=== PATIENT | female | born 2000 | race African-American/Black ===

== ENCOUNTER 2019-04-24 20:37 | Emergency (ER) | payer OTHER ==
--- NOTE | 2019-04-24 20:48 | ER Document Report ---
ED Medical Screen (RME) - General Chief Complaint: Vag Bleeding, +preg <12wks Stated Complaint: VAGINAL BLEEDING/7 WEEKS Time Seen by Provider: 04/24/19 20:41 Mode of Arrival: Ambulatory Information source: Patient Notes: This 18-year-old female approximately 8 weeks G3, P0 presents emergency department with complaints of abdominal pain and vaginal bleeding for the past 3 days. No complaints of fever vomiting diarrhea. 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 I have greeted and performed a rapid initial assessment of this patient. A comprehensive ED assessment and evaluation of the patient, analysis of test results and completion of the medical decision making process will be conducted by additional ED providers. - Related Data Allergies/Adverse Reactions: No Known Allergies Allergy (Verified 04/10/19 03:52) Past Medical History Past Surgical History: Reports: Hx Gynecologic Surgery - DNC - Immunizations Immunizations up to date: Yes
[2019-04-24 21:16] LABS: ABSOLUTE EOSINOPHILS # (AUTO) 0.1 10^3/uL (0.0-0.6); ABSOLUTE LYMPHOCYTES (AUTO) 2.6 10^3/uL (0.5-4.7); ABSOLUTE MONOCYTES (AUTO) 0.9 10^3/uL (0.1-1.4); ABSOLUTE NEUT (AUTO) 10.4 10^3/uL (1.7-8.2); BASOPHILS % (AUTO) 0.3 % (0-2); EOSINOPHILS % (AUTO) 0.8 % (0-6); HEMATOCRIT 41.8 % (36.0-47.0); HEMOGLOBIN 14.1 g/dL (12.0-15.5); LYMPHOCYTES % (AUTO) 18.7 % (13-45); MEAN CORPUSCULAR HEMOGLOBIN 25.5 pg (27.0-33.4); MEAN CORPUSCULAR HGB CONC 33.7 g/dL (32.0-36.0); MEAN CORPUSCULAR VOLUME 76 fl (80-97); MONOCYTES % (AUTO) 6.3 % (3-13); PLATELET COUNT 277 10^3/uL (150-450); RED BLOOD COUNT 5.53 10^6/uL (3.72-5.28); RED CELL DISTRIBUTION WIDTH 13.9 % (11.5-14.0); SEGMENTED NEUTROPHILS % (AUTO) 73.9 % (42-78); TOTAL CELLS COUNTED % (AUTO) 100 %; WHITE BLOOD COUNT 14.1 10^3/uL (4.0-10.5)
[2019-04-24 21:34] LABS: ALBUMIN 4.6 g/dL (3.5-5.0); ALKALINE PHOSPHATASE 76 U/L (38-126); ANION GAP 12 (5-19); ASPARTATE AMINO TRANSFERASE 25 U/L (14-36); BILIRUBIN,DIRECT 0.2 mg/dL (0.0-0.4); BILIRUBIN,TOTAL 0.3 mg/dL (0.2-1.3); BLOOD UREA NITROGEN 12 mg/dL (7-20); CALCIUM 9.9 mg/dL (8.4-10.2); CARBON DIOXIDE 25 mmol/L (22-30); CHLORIDE 100 mmol/L (98-107); GLUCOSE 93 mg/dL (75-110); POTASSIUM 3.9 mmol/L (3.6-5.0); TOTAL PROTEIN 8.2 g/dL (6.3-8.2)
[2019-04-24 21:53] LABS: APPEARANCE,URINE CLEAR; BILIRUBIN,URINE NEGATIVE (NEGATIVE); COLOR,URINE YELLOW; GLUCOSE, URINE NEGATIVE (NEGATIVE); KETONES,URINE NEGATIVE (NEGATIVE); LEUKOCYTE ESTERASE,URINE NEGATIVE (NEGATIVE); NITRITE,URINE NEGATIVE (NEGATIVE); PROTEIN,URINE NEGATIVE (NEGATIVE); URINE SPECIFIC GRAVITY 1.012; UROBILINOGEN,URINE NEGATIVE mg/dL (<2.0)
--- NOTE | 2019-04-24 21:58 | ER Document Report ---
ED GI/ - General Chief Complaint: Vaginal Bleeding Stated Complaint: VAGINAL BLEEDING/7 WEEKS Time Seen by Provider: 04/24/19 20:41 Primary Care Provider: ASHISH GALLEGOS PA-C [Primary Care Provider] - Follow up as needed Mode of Arrival: Ambulatory Notes: Patient is a 18-year-old female, G3, P0 at 8 weeks gestation by first trimester ultrasound, that comes emergency department for chief complaint of lower abdominal cramps and cramps in her lower back along with vaginal spotting for the past 3 days. She denies current abdominal pain. She denies vomiting, fever, abnormal bowel movements. She does report frequent nausea. She has had 2 first trimester miscarriages and one D&C. She is taking vitamins but denies other medications. - Related Data Allergies/Adverse Reactions: No Known Allergies Allergy (Verified 04/10/19 03:52) Past Medical History - General Information source: Patient - Social History Smoking Status: Never Smoker Frequency of alcohol use: None Drug Abuse: None Lives with: Family Family History: Reviewed & Not Pertinent Patient has suicidal ideation: No Patient has homicidal ideation: No Past Surgical History: Reports: Hx Gynecologic Surgery - DNC - Immunizations Immunizations up to date: Yes Review of Systems - Review of Systems Constitutional: No symptoms reported EENT: No symptoms reported Cardiovascular: No symptoms reported Respiratory: No symptoms reported Gastrointestinal: See HPI Genitourinary: See HPI Female Genitourinary: No symptoms reported Musculoskeletal: No symptoms reported Skin: No symptoms reported Hematologic/Lymphatic: No symptoms reported Neurological/Psychological: No symptoms reported Physical Exam - Vital signs Vitals: Temp Pulse Resp BP Pulse Ox 98.2 F 77 16 114/57 L 99 04/25/19 00:07 04/25/19 00:07 04/25/19 00:07 04/25/19 00:07 04/25/19 00:07 - Notes Notes: GENERAL: Alert, interacts well. No acute distress. HEAD: Normocephalic, atraumatic. EYES: Pupils equal, round, and reactive to light. Extraocular movements intact. ENT: Oral mucosa moist, tongue midline. Oropharynx unremarkable. Airway patent. LUNGS: Clear to auscultation bilaterally, no wheezes, rales, or rhonchi. No respiratory distress. HEART: Regular rate and rhythm. No murmur ABDOMEN: Soft, non-tender. Non-distended. Bowel sounds present in all 4 quadrants. GENITOURINARY: Deferred EXTREMITIES: Moves all 4 extremities spontaneously. No edema, normal radial and dorsalis pedis pulses bilaterally. No cyanosis. BACK: no cervical, thoracic, lumbar midline tenderness. No saddle anesthesia, normal distal neurovascular exam. Moves all extremities in full range of motion. NEUROLOGICAL: Alert and oriented x3. Normal speech. Cranial nerves II through XII grossly intact. PSYCH: Normal affect, normal mood. SKIN: Warm, dry, normal turgor. No rashes or lesions noted. Course - Re-evaluation Re-evalutation: Patient alert, well-appearing, soft abdomen. Unremarkable vital signs. Urinalysis unremarkable, hCG appropriate, RhoGam not indicated. CBC shows mild leukocytosis, no anemia, nonspecific given patient's lack of symptoms and benign evaluation. Ultrasound indicates intrauterine which is living, no acute findings. There are ovarian cysts but there are no torsions and patient was already aware of these. Discussed with patient. Discussed follow-up for cysts. She is asymptomatic on reevaluation. Discussed findings, recommendations, follow-up, return precautions. Patient requesting nausea medication for morning sickness, Reglan was provided. Patient states appreciation and agreement. Stable at time of discharge. - Vital Signs Vital signs: Temp Pulse Resp BP Pulse Ox 98.2 F 77 16 114/57 L 99 04/25/19 00:07 04/25/19 00:07 04/25/19 00:07 04/25/19 00:07 04/25/19 00:07 - Laboratory Result Diagrams: 04/24/19 21:00 04/24/19 21:00 Laboratory results interpreted by me: 04/24/19 04/24/19 21:00 21:00 WBC 14.1 H RBC 5.53 H MCV 76 L MCH 25.5 L Absolute Neuts (auto) 10.4 H Beta HCG, Quant 622184.00 H Discharge - Discharge Clinical Impression: Vaginal bleeding affecting early , Nausea Abdominal pain Qualifiers: Abdominal location: generalized Qualified Code(s): R10.84 - Generalized abdominal pain Condition: Stable Disposition: HOME, SELF-CARE Additional Instructions: Your ultrasound indicates a normal-appearing in the uterus at 7 weeks and 2 days with a good heartbeat. There are also cysts on your right ovary s till, this needs to be followed by INSTRUCTIONAL TECHNOLOGIST. Because of the bleeding and cramping I recommend pelvic rest until cleared by INSTRUCTIONAL TECHNOLOGIST, avoid sexual intercourse, intense exercise, etc. Take Tylenol for pain if needed, take Reglan if needed for nausea, you can take Benadryl with this also if needed. Return for any concerning symptoms including severe pain, fever, uncontrolled vomiting, heavy bleeding with dizziness or passing out, or any other concerning or worsening symptoms. Prescriptions: Metoclopramide HCl [Reglan] 5 mg PO ASDIR PRN #30 tablet PRN Reason: Referrals: ASHISH GALLEGOS PA-C [Primary Care Provider] - Follow up as needed
--- NOTE | 2019-04-24 23:44 | RADIOLOGY REPORT (SQ) ---
EXAM DESCRIPTION: US TRANSVAGINAL COMPLETED DATE/TME: 04/24/2019 21:58 CLINICAL HISTORY: 18 years, Female, vaginal bleeding, +HCG, abd pain COMPARISON: 04/10/2019 ultrasound TECHNIQUE: Emergent ultrasound LIMITATIONS: None. FINDINGS: The uterus measures 8.2 x 5.1 x 3.9 cm. There is an intrauterine gestational sac with yolk sac and pole. heart tones were obtained at 139 bpm. Current ultrasound age is 7 weeks 2 days based on crown-rump length and 10 weeks 3 days based on mean sac diameter. Average ultrasound age is therefore 8 weeks 6 days. The maternal right ovary measures 5 x 4 x 4 cm, the left 3 x 1 x 2 cm. 2 cystic areas of the right ovary are again noted, one of these measures 3.4 x 3.3 cm the other 3.1 x 2.2 cm. There are some equivocal low-level echoes within the cysts. These are grossly unchanged. No solid adnexal mass. No free fluid. Normal flow to each ovary IMPRESSION: Single, live IUP as above. Nonemergent follow-up recommended. Stable appearance to the to minimally complex right ovarian cysts. Recommend follow-up as per below. Recommendations for f/u of ovarian complex cysts (1): Endometrioma: <= 7 cm: US f/u 6-12 wks. If not surgically resected, US f/u annually. >7 cm: Consider MR w/IVC or surgical evaluation. If not surgically resected, US f/u annually. Dermoid: <= 5 cm: MR w/IV contrast. If not surgically resected, US f/u annually. >5 cm: Surgical evaluation. If not surgically resected, MR w/IVC; then US f/u annually Indeterminate cyst - multiple thin <=3 mm septations: Any size in any age: Consider surgical evaluation. Indeterminate cyst - non-hyperechoic nodule w/o blood flow: Any size in any age: Consider MR w/IVC or surgical evaluation. Indeterminate cyst - other, not classic for but suggestive of hemorrhagic cyst, endometrioma or dermoid: Pre-menopause: <= 7 cm: US f/u 6-12 weeks. If unchanged, continue f/u with US or consider MR w/IVC. If these do not confirm endometrioma or dermoid, consider surgical evaluation. >7 cm: Consider MR w/IVC or surgical evaluation. Post-menopause (>=1 year from last menstrual period): Any size: Consider surgical evaluation. Cyst worrisome for malignancy (thick, irregular >=3 mm septations or nodule with blood flow): Any size in any age: Consider surgical evaluation. (1) Recommendations based upon the 2010 SRU Consensus Conference Statement on the Management of Asymptomatic Ovarian and Other Adnexal Cysts Imaged at US: Radiology. 2009;256(3):943-54. copyright 2011 [employer]- All Rights Reserved
[2019-04-25 00:08] VITALS: BP 114/57
== END 2019-04-25 00:08 | disposition home or self-care (01) ==
LOC: ER 20:37
DX: O20.9 Hemorrhage in early pregnancy, unspecified (principal); O26.891 Other specified pregnancy related conditions, first trimester; R11.0 Nausea; R10.84 Generalized abdominal pain; R25.2 Cramp and spasm; O34.81 Maternal care for other abnormalities of pelvic organs, first trimester; N83.201 Unspecified ovarian cyst, right side; O99.111 Other diseases of the blood and blood-forming organs and certain disorders involving the immune mechanism complicating pregnancy, first trimester; D72.829 Elevated white blood cell count, unspecified; Z3A.08 8 weeks gestation of pregnancy; Z87.59 Personal history of other complications of pregnancy, childbirth and the puerperium; Z79.899 Other long term (current) drug therapy
CPT/HCPCS: 36415; 76817; 80053; 81001; 84702; 85025; 86900; 86901; 93976; 99284

== ENCOUNTER 2020-01-21 17:38 | Emergency (ER) | payer OTHER ==
[2020-01-21 17:55] VITALS: BP 127/78
--- NOTE | 2020-01-21 18:58 | ER Document Report ---
ED Medical Screen (RME) - General Chief Complaint: Pain All Over Stated Complaint: PAIN ALL OVER Time Seen by Provider: 01/21/20 18:52 Primary Care Provider: ASHISH GALLEGOS PA-C [Primary Care Provider] - Follow up as needed Mode of Arrival: Ambulatory Information source: Patient Notes: HPI; 19-year-old female comes in with concerns for thyroid disorder as well as depression. Patient states she had a baby on December 17 has followed up with her TELEPHONE DIRECTORY DISTRIBUTOR DRIVER who was diagnosed with depression. States they are giving her Zoloft which she is not taking as she is breast- feeding. She is concerned that she has either an autoimmune disorder or thyroid disorder which is causing her to have general body aches and forgetfulness. Also complaining of intermittent chest pain. Denies shortness of breath, no difficulty breathing. No recent travel. No COVID-19 exposure. Previous suicide attempt when she was in middle school. Also has a history of bipolar as well as a mood disorder. PE: Alert and oriented x3. Flat affect. Difficult to keep focused. Denies suicidal and homicidal ideation. Lungs: Clear to auscultation without rales, rhonchi, wheezes. Heart: Regular rate rhythm without murmurs, rubs, gallops. I have greeted and performed a rapid initial assessment of this patient. A comprehensive ED assessment and evaluation of the patient, analysis of test results and completion of the medical decision making process will be conducted by additional ED providers. I have specifically instructed the patient or family members with the patient to immediately return to any nursing staff should anything change in the patient's condition or with their chief complaint. TRAVEL OUTSIDE OF THE [place] IN LAST 30 DAYS: No - Related Data Allergies/Adverse Reactions: No Known Allergies Allergy (Verified 04/10/19 03:52) Past Medical History Past Surgical History: Reports: Hx Gynecologic Surgery - DNC - Immunizations Immunizations up to date: Yes Physical Exam - Vital signs Vitals: Temp Pulse Resp BP Pulse Ox 98.8 F 95 18 127/78 H 100 01/21/20 17:53 01/21/20 17:53 01/21/20 17:53 01/21/20 17:53 01/21/20 17:53 Course - Vital Signs Vital signs: Temp Pulse Resp BP Pulse Ox 98.8 F 95 18 127/78 H 100 01/21/20 17:53 01/21/20 17:53 01/21/20 17:53 01/21/20 17:53 01/21/20 17:53 Doctor's Discharge - Discharge Referrals: ASHISH GALLEGOS PA-C [Primary Care Provider] - Follow up as needed
--- NOTE | 2020-01-21 19:20 | RADIOLOGY REPORT (SQ) ---
EXAM DESCRIPTION: CHEST 2 VIEWS IMAGES COMPLETED DATE/TIME: 01/21/2020 7:10 pm REASON FOR STUDY: chest pain COMPARISON: None. TECHNIQUE: Frontal and lateral radiographic views of the chest acquired. NUMBER OF VIEWS: Two view. LIMITATIONS: None. FINDINGS: LUNGS AND PLEURA: No pneumothorax. No consolidation or pleural effusion. MEDIASTINUM AND HILAR STRUCTURES: No contour abnormalities. HEART AND VASCULAR STRUCTURES: Heart normal size. BONES: No acute findings. HARDWARE: None in the chest. OTHER: No other significant finding. IMPRESSION: NO ACUTE FINDINGS. TECHNICAL DOCUMENTATION: JOB ID: [id number] [place]-72 2010 [employer]- All Rights Reserved Reading location - IP/workstation name: [email or web address]
[2020-01-21 20:15] LABS: ABSOLUTE EOSINOPHILS # (AUTO) 0.1 10^3/uL (0.0-0.6); ABSOLUTE LYMPHOCYTES (AUTO) 2.5 10^3/uL (0.5-4.7); ABSOLUTE MONOCYTES (AUTO) 0.4 10^3/uL (0.1-1.4); ABSOLUTE NEUT (AUTO) 3.5 10^3/uL (1.7-8.2); BASOPHILS % (AUTO) 0.7 % (0-2); EOSINOPHILS % (AUTO) 1.8 % (0-6); HEMATOCRIT 44.9 % (36.0-47.0); LYMPHOCYTES % (AUTO) 37.4 % (13-45); MEAN CORPUSCULAR HEMOGLOBIN 26.1 pg (27.0-33.4); MEAN CORPUSCULAR HGB CONC 33.4 g/dL (32.0-36.0); MEAN CORPUSCULAR VOLUME 78 fl (80-97); MONOCYTES % (AUTO) 6.6 % (3-13); PLATELET COUNT 207 10^3/uL (150-450); RED BLOOD COUNT 5.75 10^6/uL (3.72-5.28); RED CELL DISTRIBUTION WIDTH 13.6 % (11.5-14.0); SEGMENTED NEUTROPHILS % (AUTO) 53.5 % (42-78); TOTAL CELLS COUNTED % (AUTO) 100 %; WHITE BLOOD COUNT 6.6 10^3/uL (4.0-10.5)
[2020-01-21 20:34] LABS: ALBUMIN 4.5 g/dL (3.5-5.0); ALKALINE PHOSPHATASE 122 U/L (38-126); ANION GAP 11 (5-19); ASPARTATE AMINO TRANSFERASE 52 U/L (14-36); BILIRUBIN,DIRECT 0.1 mg/dL (0.0-0.4); BILIRUBIN,TOTAL 0.4 mg/dL (0.2-1.3); BLOOD UREA NITROGEN 13 mg/dL (7-20); CALCIUM 9.7 mg/dL (8.4-10.2); CARBON DIOXIDE 23 mmol/L (22-30); CHLORIDE 104 mmol/L (98-107); GLUCOSE 96 mg/dL (75-110); POTASSIUM 4.4 mmol/L (3.6-5.0); TOTAL PROTEIN 7.5 g/dL (6.3-8.2)
[2020-01-21 20:36] LABS: ACETAMINOPHEN < 10 ug/mL (10-30); ALCOHOL < 10 mg/dL (NONE DETECTED); SALICYLATE < 1.0 mg/dL (2.0-20.0)
[2020-01-21 20:58] LABS: APPEARANCE,URINE CLEAR; BILIRUBIN,URINE NEGATIVE (NEGATIVE); COLOR,URINE YELLOW; GLUCOSE, URINE NEGATIVE (NEGATIVE); KETONES,URINE NEGATIVE (NEGATIVE); LEUKOCYTE ESTERASE,URINE MODERATE (NEGATIVE); NITRITE,URINE NEGATIVE (NEGATIVE); PROTEIN,URINE 30 mg/dL (NEGATIVE); URINE SPECIFIC GRAVITY 1.017
[2020-01-21 21:11] LABS: URINE AMPHETAMINES SCREEN NEGATIVE; URINE BARBITURATES SCREEN NEGATIVE; URINE BENZODIAZEPINES SCREEN NEGATIVE; URINE COCAINE SCREEN NEGATIVE; URINE MARIJUANA (THC) SCREEN NEGATIVE; URINE METHADONE SCREEN NEGATIVE; URINE PHENCYCLIDINE SCREEN NEGATIVE
--- NOTE | 2020-01-21 21:51 | EKG REPORT ---
SEVERITY:- NORMAL ECG - SINUS RHYTHM : Confirmed by: Susy Donnelly MD 21-Jan-2020 21:51:29
--- NOTE | 2020-01-21 22:26 | ER Document Report ---
ED General - General Chief Complaint: Pain All Over Stated Complaint: PAIN ALL OVER Time Seen by Provider: 01/21/20 18:52 Primary Care Provider: ASHISH GALLEGOS PA-C [PHYSICIAN OFFICE WORKFORCE PLANNER] - Follow up as needed Mode of Arrival: Ambulatory Information source: Patient Notes: 19-year-old female patient presenting to the emergency department with multiple concerns today. She reports that she has been having a lot of fatigue lately, she has felt very cold especially in her extremities and she has been having depression. She states that she had a normal vaginal delivery 4 weeks ago and that her doctor diagnosed her with depression and recommended medications. Patient reports she does not really want to take the medication because she is breast-feeding and she is concerned that the medication could interfere with this. Patient reports she has a lot of anxiety lately. She denies any suicidal or homicidal ideations. TRAVEL OUTSIDE OF THE [place] IN LAST 30 DAYS: No - Related Data Allergies/Adverse Reactions: No Known Allergies Allergy (Verified 04/10/19 03:52) Past Medical History - General Information source: Patient - Social History Smoking Status: Former Smoker Frequency of alcohol use: None Drug Abuse: None Family History: Other - Autoimmune disorders Psychiatric Medical History: Reports: Hx Anxiety, Hx Bipolar Disorder, Hx Depression Surgical Hx: Negative Past Surgical History: Reports: Hx Gynecologic Surgery - DNC - Immunizations Immunizations up to date: Yes Review of Systems - Review of Systems Constitutional: Malaise, Other - feels cold EENT: No symptoms reported Cardiovascular: No symptoms reported Respiratory: No symptoms reported Gastrointestinal: No symptoms reported Genitourinary: No symptoms reported Female Genitourinary: No symptoms reported Musculoskeletal: No symptoms reported Skin: No symptoms reported Hematologic/Lymphatic: No symptoms reported Neurological/Psychological: Depression Physical Exam - Vital signs Vitals: Temp Pulse Resp BP Pulse Ox 98.8 F 95 18 127/78 H 100 01/21/20 17:53 01/21/20 17:53 01/21/20 17:53 01/21/20 17:53 01/21/20 17:53 - Notes Notes: PHYSICAL EXAMINATION: GENERAL: Well-appearing, well-nourished and in no acute distress. HEAD: Atraumatic, normocephalic. EYES: Pupils equal round and reactive to light, extraocular movements intact, conjunctiva are normal. ENT: Nares patent, oropharynx clear without exudates. Moist mucous membranes. NECK: Normal range of motion, supple without lymphadenopathy LUNGS: Breath sounds clear to auscultation bilaterally and equal. No wheezes rales or rhonchi. HEART: Regular rate and rhythm without murmurs ABDOMEN: Soft, nontender, nondistended abdomen. No guarding, no rebound. No masses appreciated. Female : deferred Musculoskeletal: Normal range of motion, no pitting or edema. No cyanosis. NEUROLOGICAL: Cranial nerves grossly intact. Normal speech, normal gait. Normal sensory, motor exams PSYCH: Anxious SKIN: Warm, Dry, normal turgor, no rashes or lesions noted. Course - Re-evaluation Re-evalutation: Patient's medical work-up today has been reassuring. Patient was very concerned that she may have something going on with her thyroid. She states she has been feeling very cold and that her extremities have been cold. She reports she googled her symptoms and was convinced that she must have something wrong with her thyroid as she has also been feeling very tired. Patient's TSH level was within normal limits. Patient denies any suicidal or homicidal ideations. She states she would never consider hurting herself as she has a 4-week-old baby at home who needs her. She does report she has been feeling very anxious lately and having depression. She states that she is always worried about her baby. She states every time the baby makes even the slightest sound she wakes up to check on the baby. She reports due to this she has not been sleeping much. Her primary care/CENTERLESS GRINDING MACHINE ADJUSTER has prescribed her an antidepressant to take. She states she has not started taking this because she is breast-feeding and she was concerned that it would conflict with this. There is no indication to IVC this patient, again she denies suicidal or homicidal ideations. She is anxious but she has good thought processes. She has a good support system at home with her . She reports that she would like something to help with her anxiety. I will prescribe her some hydroxyzine to use on an as needed basis. I highly recommended that she start taking her antidepressant that her provider prescribed to her as I do feel that it will hel p with her symptoms. Patient is agreeable to this plan. Patient also given an outpatient resource sheet. She does report that she has . I also told her that [place]. - Vital Signs Vital signs: Temp Pulse Resp BP Pulse Ox 98.8 F 95 18 127/78 H 100 01/21/20 17:53 01/21/20 17:53 01/21/20 17:53 01/21/20 17:53 01/21/20 17:53 - Laboratory Result Diagrams: 01/21/20 19:52 01/21/20 19:52 Laboratory results interpreted by me: 01/21/20 01/21/20 01/21/20 19:20 19:52 19:52 RBC 5.75 H MCV 78 L MCH 26.1 L AST 52 H ALT 71 H Urine Protein 30 H Urine Urobilinogen 2.0 H Ur Leukocyte Esterase MODERATE H Salicylates < 1.0 L Acetaminophen < 10 L - EKG Interpretation by Me EKG shows normal: Sinus rhythm - Rate of 74, QTc 395, normal intervals, no ST segment elevations or depressions. Discharge - Discharge Clinical Impression: Shortness of breath, Anxiety Fatigue Qualifiers: Fatigue type: unspecified Qualified Code(s): R53.83 - Other fatigue Condition: Stable Disposition: HOME, SELF-CARE Additional Instructions: Your medical work-up today was reassuring. All of your lab work was normal including your thyroid levels. I highly advise you start taking the medication that your CENTERLESS GRINDING MACHINE ADJUSTER prescribed you for your depression. Please return to the emergency department for any new or worsening concerns or if you have any thoughts of hurting herself. Please follow-up with your CENTERLESS GRINDING MACHINE ADJUSTER and consider establishing an appointment for therapy. You were given a resource sheet that has some information regarding mental health. Prescriptions: Hydroxyzine Pamoate [Vistaril 25 mg Capsule] 25 mg PO TIDP PRN #30 capsule PRN Reason: Anxiety Referrals: ASHISH GALLEGOS PA-C [PHYSICIAN OFFICE WORKFORCE PLANNER] - Follow up as needed
== END 2020-01-21 23:41 | disposition home or self-care (01) ==
LOC: ER 17:38
DX: M79.10 Myalgia, unspecified site (principal); R06.02 Shortness of breath; F41.9 Anxiety disorder, unspecified; R53.83 Other fatigue
CPT/HCPCS: 36415; 71046; 80053; 80307; 81001; 84443; 84484; 84703; 85025; 93005; 93010; 99285